=== PATIENT | male | born 1960 | race Caucasian/White ===

== ENCOUNTER 2018-06-24 16:59 | Inpatient (IN) | payer BC ==
[~2018-06-24] VITALS: Ht 182.9 cm; Wt 102.7 kg
[~2018-06-24 16:59] MED LIST: FLO0.4C PO; HYDR-565 PO; IBUP-1984 PO
[2018-06-24] MEDS ORDERED: normal saline 1000ML IV soln IVB ONE (17:05)
[2018-06-24] MEDS ORDERED: ondansetron/PF 4mg/2ml inj IV ONE (17:05)
[2018-06-24] MEDS ORDERED: morphine 4 MG/ML inj SYRINge IV ONE (17:05)
[2018-06-24] MEDS ORDERED: MIDAZolam 5mg/ml 2ml vial IV ONE (17:25)
[2018-06-24 17:54] LABS: BASOPHILS % (AUTO) 0.2 % (0-1); EOSINOPHILS % (AUTO) 0.4 % (0-6); HEMATOCRIT 48.8 % (42.0-52.0); HEMOGLOBIN 16.5 g/dl (14.0-17.9); LYMPHOCYTES # (AUTO) 0.8 X10'3 (1.1-4.8); LYMPHOCYTES % (AUTO) 13.3 % (21-51); MEAN CORPUSCULAR HEMOGLOBIN 31.4 PG (27.0-31.0); MEAN CORPUSCULAR HGB CONC 33.9 % (33.0-36.5); MEAN CORPUSCULAR VOLUME 92.6 FL (78-98); MEAN PLATELET VOLUME 9.1 FL (7.4-10.4); MONOCYTES # (AUTO) 0.5 X10'3 (0-0.9); MONOCYTES % (AUTO) 9.1 % (2-12); NEUTROPHILS # (AUTO) 4.6 X10'3 (1.8-7.7); PLATELET COUNT 253 X10'3 (140-440); RED BLOOD COUNT 5.27 X10'6 (4.70-6.10); RED CELL DISTRIBUTION WIDTH 13.2 % (11.5-14.5); WHITE BLOOD COUNT 5.9 X10'3 (4.5-11.0)
[2018-06-24] MEDS ORDERED: ondansetron 4mg rapidly disintigrating tab PO ONE (18:15)
[2018-06-24] MEDS ORDERED: normal saline 1000ML IV soln IV ONE (18:20)
[2018-06-24 18:22] LABS: ALANINE AMINOTRANSFERASE 27 U/L (12-78); ALBUMIN 3.8 G/DL (3.4-5.0); ALKALINE PHOSPHATASE 84 IU/L (46-116); ANION GAP 12 (8-16); ASPARTATE AMINO TRANSFERASE 16 U/L (10-37); BILIRUBIN,TOTAL 1.4 MG/DL (0.1-1.0); BLOOD UREA NITROGEN 33 MG/DL (7-18); BUN/CREATININE RATIO 22.6 (5.4-32.0); CALCIUM 9.6 MG/DL (8.5-10.1); CHLORIDE 102 MMOL/L (99-107); CREATININE 1.46 MG/DL (0.60-1.10); GLUCOSE 189 MG/DL (70-104); MAGNESIUM 1.9 MG/DL (1.5-2.4); SODIUM 140 MMOL/L (135-145); TOTAL PROTEIN 7.5 G/DL (6.4-8.2); eGFR 49 ML/MIN
[2018-06-24 18:53] LABS: TOTAL CELLS COUNTED 100
[2018-06-24 18:54] LABS: PLATELET ESTIMATE NORMAL
[2018-06-24] MEDS: normal saline 1000ml 1,000 ML IV SCH (20:54)
[2018-06-24] MEDS ORDERED: diphenhydrAMINE 25mg capsule PO PRN (20:55)
[2018-06-24] MEDS ORDERED: metoclopramide 5 mg/ml inj IV PRN (20:55)
[2018-06-24] MEDS ORDERED: HYDROmorphone 1 mg/ml syringe IV PRN ×2 (20:55)
[2018-06-24] MEDS ORDERED: magnesium hydroxide 30ml (MOM) UD suspension PO PRN (20:55)
[2018-06-24] MEDS ORDERED: bisacodyl 10mg suppository rectal RC PRN (20:55)
[2018-06-24] MEDS ORDERED: acetaminophen 325mg tablet PO PRN ×2 (20:55)
[2018-06-24] MEDS ORDERED: morphine 2 MG/ML inj. syringe IV PRN ×2 (20:55)
[2018-06-24] MEDS ORDERED: HYDROcodone/acetaminophen 10/325mg tab PO PRN (20:55)
[2018-06-24] MEDS ORDERED: acetaminophen 650mg rectal suppository RC PRN (20:55)
[2018-06-24] MEDS ORDERED: diphenhydrAMINE 50 mg/ml inj IV PRN (20:55)
[2018-06-24] MEDS ORDERED: ondansetron/PF 4mg/2ml inj IV PRN (20:55)
[2018-06-24] MEDS ORDERED: HYDROcodone/acetaminophen 5mg/325mg tablet PO PRN (20:55)
[2018-06-24] MEDS ORDERED: mag hydrox/Alum hydrox/simeth 30ml oral suspension PO PRN (20:55)
[2018-06-24] MEDS ORDERED: temazepam 15mg capsule PO PRN (21:00)
[2018-06-24 21:38] LABS: LIPASE 86 U/L (73-393)
[2018-06-24 21:40] LABS: HEMOGLOBIN A1C 5.7 % (4.5-6.2)
[2018-06-24 22:20] LABS: INR 1.1 INR; PARTIAL THROMBOPLASTIN TIME 25 SECONDS (22-32)
[2018-06-24 23:25] LABS: CLARITY,URINE CLEAR (Clear); COLOR,URINE YELLOW (Yellow); GLUCOSE, URINE NEGATIVE (Neg); KETONES,URINE NEGATIVE (Neg); LEUKOCYTE ESTERASE ,URINE NEGATIVE (Neg); NITRITES, URINE NEGATIVE (Neg); OCCULT BLOOD,URINE NEGATIVE (Neg); PH,URINE 5.5 (4.8-8.0); PROTEIN,URINE NEGATIVE (Neg); UROBILINOGEN,URINE 0.2 E.U/dL (0.2-1.0)
[2018-06-24 23:28] LABS: UA COLLECTION TYPE CLN CATCH MIDSTREAM
[2018-06-25 01:00] VITALS: BP 150/82
[2018-06-25] MEDS: piperacillin/tazo 4.5gm/100ml 100 ML IV SCH ×3 (01:41→17:41)
[2018-06-25 04:47] LABS: BASOPHILS % (AUTO) 0.2 % (0-1); EOSINOPHILS # (AUTO) 0.1 X10'3 (0-0.9); EOSINOPHILS % (AUTO) 1.4 % (0-6); HEMATOCRIT 41.3 % (42.0-52.0); LYMPHOCYTES # (AUTO) 0.8 X10'3 (1.1-4.8); LYMPHOCYTES % (AUTO) 17.4 % (21-51); MEAN CORPUSCULAR HEMOGLOBIN 31.6 PG (27.0-31.0); MEAN CORPUSCULAR HGB CONC 33.9 % (33.0-36.5); MEAN CORPUSCULAR VOLUME 93.3 FL (78-98); MONOCYTES # (AUTO) 0.6 X10'3 (0-0.9); MONOCYTES % (AUTO) 13.6 % (2-12); NEUTROPHILS # (AUTO) 3.1 X10'3 (1.8-7.7); NEUTROPHILS % (AUTO) 67.4 % (42-75); PLATELET COUNT 206 X10'3 (140-440); RED BLOOD COUNT 4.43 X10'6 (4.70-6.10); RED CELL DISTRIBUTION WIDTH 13.3 % (11.5-14.5); WHITE BLOOD COUNT 4.6 X10'3 (4.5-11.0)
[2018-06-25 05:11] LABS: ALANINE AMINOTRANSFERASE 24 U/L (12-78); ALKALINE PHOSPHATASE 62 IU/L (46-116); ANION GAP 6 (8-16); ASPARTATE AMINO TRANSFERASE 14 U/L (10-37); BILIRUBIN,TOTAL 1.2 MG/DL (0.1-1.0); BLOOD UREA NITROGEN 25 MG/DL (7-18); BUN/CREATININE RATIO 18.7 (5.4-32.0); CALCIUM 8.2 MG/DL (8.5-10.1); CHLORIDE 107 MMOL/L (99-107); CHOL/HDL RATIO 2.7 (0.00-4.99); CHOLESTEROL 118 MG/DL (0-200); CREATININE 1.34 MG/DL (0.60-1.10); GLUCOSE 140 MG/DL (70-104); HDL CHOLESTEROL 44 MG/DL (35-60); POTASSIUM 3.8 MMOL/L (3.5-5.1); SODIUM 143 MMOL/L (135-145); TOTAL CARBON DIOXIDE 29.6 MMOL/L (24-32); TOTAL PROTEIN 6.1 G/DL (6.4-8.2); TRIGLYCERIDES 101 MG/DL (20-135); eGFR 54 ML/MIN
[2018-06-25] MEDS: normal saline 1000ml 1,000 ML IV SCH ×2 (06:01→16:54)
[2018-06-25 07:12] VITALS: BP 137/88
[2018-06-25] MEDS: docusate sod 100mg capsule PO SCH ×2 (08:00→20:00)
[2018-06-25] MEDS: pantoprazole 40 MG vial IV SCH ×2 (08:00→20:51)
[2018-06-25] MEDS ORDERED: ATOR20TA66 PO (09:36)
[2018-06-25] MEDS ORDERED: LOSA100T15 PO (09:36)
[2018-06-25] MEDS ORDERED: diatr meglu/diatrizoate 30ml oral sol.-(3 dose) bottle PO ONE (10:20)
[2018-06-25 12:20] VITALS: BP 140/96
[2018-06-25 13:55] LABS: LDL CHOLESTEROL 63 MG/DL (50-100)
[2018-06-25] MEDS: levoFLOXACIN-Levaquin 750MG/D5 150 ML IV SCH (18:55)
[2018-06-25 20:00] VITALS: BP 142/98
[2018-06-25] MEDS: metroNIDAZOLE-Flagyl 500mg/NS 100 ML IV SCH (23:02)
[2018-06-26] VITALS: BP 140/89
[2018-06-26] MEDS: normal saline 1000ml 1,000 ML IV SCH ×2 (02:49→05:16)
[2018-06-26 04:57] LABS: BASOPHILS % (AUTO) 0.3 % (0-1); EOSINOPHILS # (AUTO) 0.2 X10'3 (0-0.9); EOSINOPHILS % (AUTO) 3.7 % (0-6); HEMATOCRIT 36.7 % (42.0-52.0); HEMOGLOBIN 12.6 g/dl (14.0-17.9); LYMPHOCYTES % (AUTO) 15.9 % (21-51); MEAN CORPUSCULAR HGB CONC 34.4 % (33.0-36.5); MEAN PLATELET VOLUME 8.9 FL (7.4-10.4); MONOCYTES # (AUTO) 0.9 X10'3 (0-0.9); MONOCYTES % (AUTO) 13.9 % (2-12); NEUTROPHILS # (AUTO) 4.1 X10'3 (1.8-7.7); NEUTROPHILS % (AUTO) 66.2 % (42-75); PLATELET COUNT 188 X10'3 (140-440); RED BLOOD COUNT 3.94 X10'6 (4.70-6.10); RED CELL DISTRIBUTION WIDTH 13.6 % (11.5-14.5); WHITE BLOOD COUNT 6.2 X10'3 (4.5-11.0)
[2018-06-26 05:42] LABS: ALANINE AMINOTRANSFERASE 17 U/L (12-78); ALBUMIN 2.6 G/DL (3.4-5.0); ALBUMIN/GLOBULIN RATIO 0.8 (1.1-1.5); ALKALINE PHOSPHATASE 52 IU/L (46-116); ANION GAP 7 (8-16); ASPARTATE AMINO TRANSFERASE 11 U/L (10-37); BILIRUBIN,TOTAL 0.6 MG/DL (0.1-1.0); BLOOD UREA NITROGEN 15 MG/DL (7-18); BUN/CREATININE RATIO 13.2 (5.4-32.0); CALCIUM 8.2 MG/DL (8.5-10.1); CHLORIDE 108 MMOL/L (99-107); CREATININE 1.14 MG/DL (0.60-1.10); GLUCOSE 112 MG/DL (70-104); POTASSIUM 3.6 MMOL/L (3.5-5.1); SODIUM 142 MMOL/L (135-145); TOTAL CARBON DIOXIDE 27.5 MMOL/L (24-32); TOTAL PROTEIN 5.7 G/DL (6.4-8.2); eGFR 66 ML/MIN
[2018-06-26] MEDS: metroNIDAZOLE-Flagyl 500mg/NS 100 ML IV SCH (08:00)
[2018-06-26] MEDS ORDERED: losartan 50mg tablet PO SCH (08:00)
[2018-06-26] MEDS ORDERED: atorvastatin 20mg tablet PO SCH (08:00)
[2018-06-26] MEDS: docusate sod 100mg capsule PO SCH (08:00)
[2018-06-26] MEDS: levoFLOXACIN-Levaquin 750MG/D5 150 ML IV SCH (08:08)
[2018-06-26] MEDS: pantoprazole 40 MG vial IV SCH (08:08)
[2018-06-26] MEDS ORDERED: LEVO500T89 PO (09:11)
[2018-06-26] MEDS ORDERED: LACT1CAP26 PO (09:11)
[2018-06-26] MEDS ORDERED: METR500T PO (09:11)
[2018-06-26 11:00] VITALS: BP 145/93
== END 2018-06-26 11:20 | disposition home or self-care (01) | DRG 871 ==
LOC: ER 16:59 → ED HOLD 20:54 → EDBEDREQ 23:34 → SUR 3N 23:59
PROVIDERS: ADMIT Family Medicine; ATTEND Family Medicine
PROC: 0D9670Z Drainage of Stomach with Drainage Device, Via Natural or Artificial Opening (ICD-10-PCS; principal; 2018-06-24)
PROC: BW211ZZ Computerized Tomography (CT Scan) of Abdomen and Pelvis using Low Osmolar Contrast (ICD-10-PCS; 2018-06-25)
DX: A41.9 Sepsis, unspecified organism (principal); N17.0 Acute kidney failure with tubular necrosis; K56.7 Ileus, unspecified; E78.5 Hyperlipidemia, unspecified; E86.0 Dehydration; I10 Essential (primary) hypertension; K52.9 Noninfective gastroenteritis and colitis, unspecified; Z87.442 Personal history of urinary calculi; Z79.899 Other long term (current) drug therapy
CPT/HCPCS: 36415; 74018; 74176; 80053; 80061; 81003; 83036; 83605; 83690; 83735; 83880; 84100; 84145; 85025; 85610; 85730; 87040; 87070; 96361; 96374; 96375; 99285; C9113; J1956; J2250; J2270; J2405; J2543; J3490; J7030; Q9963